=== PATIENT | male | born 1955 | race Two or more races ===

== ENCOUNTER 2025-04-10 13:30 | Outpatient (RCR) | payer MEDICARE, SELFPAY ==
--- NOTE | 2025-04-04 13:34 | PTNOTE_ITS ---
PT OP Initial Eval Patient Information Outpatient Physical Therapy Treatment Date: 04/04/25 Visit Reasons: Neck pain Medical Diagnosis: Neck Pain Treatment Dx #1: Neck Pain Treatment Dx #2: C/S Mobility Deficits Start of Care: 04/04/25 Date of Onset: 20 years ago Smoking Status Smoking Status: Never smoker Initial Assessment Subjective: Pt is a 69 y/o male reports of chronic neck pain (03/21) since 20 years ago. Pt denies of pain or numbness down the arms. Pt also confirmed that he has been diagnosed with scoliosis and rheumatoid arthritis. Pt has limitation with turning his head, perform chores, self care, lifting, and performing recreational activities. Objective: C/S AROM Flexion: 5 deg Extension: 9 deg Left Sidebendin deg Right Sidebendin deg Left Rotation: 15 deg Right Rotation: 18 deg BUE AROM: all motions are WFL BUE MMTs: grossly 4-/5 Scapula MMTs: grossly 3+/5 Posture Analysis: forward head posture, rounded shoulders, t/s kyphosis Palpation: TTP and increase upper trape and levator tone; hypomobile C2-C7 facets bilaterally Assessment: Pt demonstrate neck pain with c/s mobility deficits leading to difficulty with ADLs. Pt will benefit from physical therapy to increase ROM, flexibility, and work on overall mobility. Short Term and Correction Goals 1) Increase c/s AROM WFL in 6 wks to be able to perform chores 2) Increase BUE MMTs to 4/5 in 6 wks to be able to perform recreational activities 3) Decrease neck pain in 6 wks to be able to perform self care activities with less limitation 4) Improve posture in 6 wks to be able to sit and stand longer with less pain 5) Indep with HEP Treatment Plan 1) Manual Therapy 2) Therapeutic Activities 3) Therapeutic Exercises 4) Modalities (ice, heat) Frequency and Duration: 2 x wk for 6 wks Certification Dates: 04/04/25 to 07/05/25 Procedure Charges OP PT Eval Mod Complex 30 minutes: Yes
--- NOTE | 2025-04-10 14:26 | PT.ODAYNRPT ---
PT Outpatient Daily Note OP Daily Note Outpatient Physical Therapy Treatment Date: 04/10/25 Visit Reasons: Neck pain Subjective: Pt's neck feels okay. Pt still has stiffness and difficulty with turning head Objective: Please see flow chart for list of ther ex performed Assessment: minimal changes with c/s AROM post stretching. Frequent cues to correct pec major stretch to decrease right upper trape recruitment while stretching. Plan: Continue with PT Length of Time (minutes) of Treatment: 30 Minutes Procedure Charges Therapeutic Exercise 30 minutes: Yes
== END 2025-04-11 23:59 | disposition home or self-care (01) ==
LOC: CPTX 13:30
PROVIDERS: PCP Physician Assistant; Referring Provider Physician Assistant; Visit Provider Physician Assistant
DX: M54.2 Cervicalgia (principal); G89.29 Other chronic pain; M41.9 Scoliosis, unspecified; M06.9 Rheumatoid arthritis, unspecified
CPT/HCPCS: 97110; 97162

== ENCOUNTER 2025-05-09 13:30 | Outpatient (RCR) | payer MEDICARE, SELFPAY ==
--- NOTE | 2025-04-12 13:46 | PT.ODAYNRPT ---
PT Outpatient Daily Note OP Daily Note Outpatient Physical Therapy Treatment Date: 04/12/25 Visit Reasons: neck pain Subjective: Pt's neck feels better after last session. Pt does not have any concerns. Objective: Please see flow chart for list of ther ex performed Assessment: less guarded today with neck stretches. Pt continues to exhibit tightness in upper trape/levator scapulae L>R during stretches Plan: Continue with PT Length of Time (minutes) of Treatment: 30 Minutes Procedure Charges Therapeutic Exercise 30 minutes: Yes
--- NOTE | 2025-04-15 13:41 | PT.ODAYNRPT ---
PT Outpatient Daily Note OP Daily Note Outpatient Physical Therapy Treatment Date: 04/15/25 Visit Reasons: neck pain Subjective: Pt reports neck is doing ok, no new concerns. Objective: Please see flow sheet for ther ex list. Assessment: Pt demonstrates good tolerance with added rows exercise. Plan: Continue with pOC. Length of Time (minutes) of Treatment: 30 Minutes CORE RESCUER Service Modifier Method I: Divide the number of min of care provided by the CORE RESCUER/KYLIE by the total min of care provided then multiply by 100. If greater than 11 percent modifier is required. Method II: Divide the total time of care provided to patient by 10 (round to the nearest whole number) and add 1 min. to set the minimum time requirement. If treatment total was 60 min., then 10% of 6 min PT CQ modifier applied: CQ Modifier applied Procedure Charges Therapeutic Exercise 30 minutes: Yes
--- NOTE | 2025-05-06 14:08 | PTNOTE_ITS ---
PT Outpatient Daily Note OP Daily Note Outpatient Physical Therapy Treatment Date: 05/06/25 Visit Reasons: neck pain Subjective: [place] that is why he has not been to therapy. Objective: Please see flow sheet for ther ex list. Assessment: Pt c/s AROM limited, pt instructed on cervical retraction but requires verbal cu es and demonstration to avoid c/s flexion. Plan: Continue with pOC. Length of Time (minutes) of Treatment: 30 Minutes ENGLISH DRAWER Service Modifier Method I: Divide the number of min of care provided by the ENGLISH DRAWER/KYLIE by the total min of care provided then multiply by 100. If greater than 11 percent modifier is required. Method II: Divide the total time of care provided to patient by 10 (round to the nearest whole number) and add 1 min. to set the minimum time requirement. If treatment total was 60 min., then 10% of 6 min PT CQ modifier applied: CQ Modifier applied Procedure Charges Therapeutic Exercise 30 minutes: Yes
--- NOTE | 2025-05-09 15:05 | PT.ODAYNRPT ---
PT Outpatient Daily Note OP Daily Note Outpatient Physical Therapy Treatment Date: 05/09/25 Visit Reasons: neck pain Subjective: No progress or changes to report at this time. Objective: Please see flow sheet for ther ex list. Assessment: Thoracic extension exercise completed with c/s extension, verbal cues and demonstration to attempt to maintain c/s in neutral pt complied. Plan: Continue with POC. Length of Time (minutes) of Treatment: 30 Minutes Procedure Charges Therapeutic Exercise 30 minutes: Yes
== END 2025-05-12 23:59 | disposition home or self-care (01) ==
LOC: CPTX 13:30
PROVIDERS: PCP Physician Assistant; Referring Provider Physician Assistant; Visit Provider Physician Assistant
DX: M54.2 Cervicalgia (principal); M41.9 Scoliosis, unspecified; M06.9 Rheumatoid arthritis, unspecified
CPT/HCPCS: 97110

== ENCOUNTER 2025-06-06 13:30 | Outpatient (RCR) | payer MEDICARE, SELFPAY ==
--- NOTE | 2025-05-23 14:39 | PTNOTE_ITS ---
PT Outpatient Daily Note OP Daily Note Outpatient Physical Therapy Treatment Date: 05/23/25 Visit Reasons: neck pain Subjective: Pt notices neck is moving a little better when it comes to rotating head but is aware that in his case he will not recover full ROM. Objective: Please see flow sheet for ther ex list. Assessment: Focus on improving static and dynamic posture, ROM of c/s slowly progressing. Plan: Continue with pOC. Length of Time (minutes) of Treatment: 30 Minutes COMMUNITY DEVELOPMENT MANAGER Service Modifier Method I: Divide the number of min of care provided by the COMMUNITY DEVELOPMENT MANAGER/PACKAGE CRIMPER by the total min of care provided then multiply by 100. If greater than 11 percent modifier is required. Method II: Divide the total time of care provided to patient by 10 (round to the nearest whole number) and add 1 min. to set the minimum time requirement. If treatment total was 60 min., then 10% of 6 min PT CQ modifier applied: CQ Modifier applied Procedure Charges Therapeutic Exercise 30 minutes: Yes
--- NOTE | 2025-05-29 15:19 | PTNOTE_ITS ---
PT Outpatient Daily Note OP Daily Note Outpatient Physical Therapy Treatment Date: 05/29/25 Visit Reasons: neck pain Subjective: Pt reports noticing some progress with neck symptoms. Objective: Please see flow sheet for ther ex list. Assessment: Pt continues to demonstrate forward stooped posture and increase thoracic kyphotic posture but reports progress with symptoms. Plan: Continue with poC. Length of Time (minutes) of Treatment: 30 Minutes CERTIFIED ORTHOTIC FITTER Service Modifier Method I: Divide the number of min of care provided by the CERTIFIED ORTHOTIC FITTER/SUPERVISOR RUBBER COVERING by the total min of care provided then multiply by 100. If greater than 11 percent modifier is required. Method II: Divide the total time of care provided to patient by 10 (round to the nearest whole number) and add 1 min. to set the minimum time requirement. If treatment total was 60 min., then 10% of 6 min PT CQ modifier applied: CQ Modifier applied Procedure Charges Therapeutic Exercise 30 minutes: Yes
--- NOTE | 2025-06-04 14:04 | PTNOTE_ITS ---
PT Outpatient Daily Note OP Daily Note Outpatient Physical Therapy Treatment Date: 06/04/25 Visit Reasons: neck pain Subjective: Pt's neck pain is doing okay. Pt reports of more left shoulder pain after he washed his car ~ 30 mins. Pt used a pain patch on the shoulder and pain seems to be better. Pt has a follow up appt with provider in [place]. Objective: Please see flow chart for list of ther ex performed Assessment: post heat helped with neck and left shoulder pain. Pt demonstrate improve upper cervical mobility demonstrating more mobility with chin tuck exercise Plan: Continue with PT Length of Time (minutes) of Treatment: 30 Minutes Procedure Charges Therapeutic Exercise 30 minutes: Yes
--- NOTE | 2025-06-06 13:40 | PTNOTE_ITS ---
PT Outpatient Daily Note OP Daily Note Outpatient Physical Therapy Treatment Date: 06/06/25 Visit Reasons: neck pain Subjective: Pt c/o stiffness and minimal nek pain today. Objective: Please see flow sheet for ther ex list. Assessment: Pt demonstrates upper trap recruitment posture, instructed on relaxation exercises for upper trap region. Plan: Continue with poC. Length of Time (minutes) of Treatment: 30 Minutes DIRECTOR PROJECT MANAGEMENT Service Modifier Method I: Divide the number of min of care provided by the DIRECTOR PROJECT MANAGEMENT/CERTIFIED ORTHOTIST by the total min of care provided then multiply by 100. If greater than 11 percent modifier is required. Method II: Divide the total time of care provided to patient by 10 (round to the nearest whole number) and add 1 min. to set the minimum time requirement. If treatment total was 60 min., then 10% of 6 min PT CQ modifier applied: CQ Modifier applied Procedure Charges Therapeutic Exercise 30 minutes: Yes
== END 2025-06-11 23:59 | disposition home or self-care (01) ==
LOC: CPTX 13:30
PROVIDERS: PCP Physician Assistant; Referring Provider Physician Assistant; Visit Provider Physician Assistant
DX: M54.2 Cervicalgia (principal); M41.9 Scoliosis, unspecified; M06.9 Rheumatoid arthritis, unspecified
CPT/HCPCS: 97110

== ENCOUNTER 2025-06-19 13:00 | Outpatient (RCR) | payer MEDICARE, SELFPAY ==
--- NOTE | 2025-06-14 14:10 | PTNOTE_ITS ---
PT Outpatient Daily Note OP Daily Note Outpatient Physical Therapy Treatment Date: 06/14/25 Visit Reasons: Neck pain Subjective: Pt reports his neck is doing somewhat better, notices some improvement with flexibility. Objective: Please see flow sheet for ther ex list. Assessment: Pt demonstrates improved tolerance with thoracic extension exercise indicated by no complaint of pain with ROm into extension. Plan: Continue with pOC. Length of Time (minutes) of Treatment: 30 Minutes FARM SERVICE ADVISER Service Modifier Method I: Divide the number of min of care provided by the FARM SERVICE ADVISER/KYLIE by the total min of care provided then multiply by 100. If greater than 11 percent modifier is required. Method II: Divide the total time of care provided to patient by 10 (round to the nearest whole number) and add 1 min. to set the minimum time requirement. If treatment total was 60 min., then 10% of 6 min PT CQ modifier applied: CQ Modifier applied Procedure Charges Therapeutic Exercise 30 minutes: Yes
--- NOTE | 2025-06-17 16:21 | PT.ODAYNRPT ---
PT Outpatient Daily Note OP Daily Note Outpatient Physical Therapy Treatment Date: 06/17/25 Visit Reasons: Neck pain Subjective: Pt reports slow progress with neck but feels ROm has improved. Objective: Please see flow sheet for ther ex list. Assessment: Verbal cues to perform cervical rotation exercise avoiding protrusion, pt complied. Plan: Continue with POC. Length of Time (minutes) of Treatment: 30 Minutes DIRECTOR OF GLOBAL MARKETING Service Modifier Method I: Divide the number of min of care provided by the DIRECTOR OF GLOBAL MARKETING/SENIOR SOFTWARE DEVELOPER by the total min of care provided then multiply by 100. If greater than 11 percent modifier is required. Method II: Divide the total time of care provided to patient by 10 (round to the nearest whole number) and add 1 min. to set the minimum time requirement. If treatment total was 60 min., then 10% of 6 min PT CQ modifier applied: CQ Modifier applied Procedure Charges Therapeutic Exercise 30 minutes: Yes
--- NOTE | 2025-06-19 14:27 | PT.ODS1RPT ---
PT OP Progress/Discharge Note Date of Service: 06/19/25 Progress Note/DC Note Progress Note/Discharge Note: DC Note Patient Information Visit Reasons: Neck pain Medical Diagnosis: Neck Pain Treatment Dx #1: Neck Pain Service Continue Service or Discharge: Discharge Discharge Date: 06/19/25 Status Subjective: Pt's neck pain is a little better. Pt has been able to turn head, perform chores, self care, and lift arms with less limitation. At this time Pt feels comfortable being release from PT with exercises to continue. Objective: C/S AROM: all motions are WFL where ROM is available BUE AROM: all motions are WNL BUE MMTs: grossly 4/5 Scapula MMTs: grossly 3+/5 Palpation: decrease upper trape and levator scapulae tone Assessment: Pt demonstrate improve with c/s mobility and overall BUE strength allowing him to perform ADLs with less limitation. Pt will no longer benefit from physical therapy due to plateau towards goals. Pt was instructed on HEP last session and educated to continue exercises to maintain overall mobility. Pt performed all exercises safely, thank you for your referrals. Plan: D/C home with HEP and follow up with MD [facility]OTTER Procedure Charges Therapeutic Exercise 30 minutes: Yes
== END 2025-07-12 23:59 | disposition home or self-care (01) ==
LOC: CPTX 13:00
PROVIDERS: PCP Physician Assistant; Referring Provider Physician Assistant; Visit Provider Physician Assistant
DX: M54.2 Cervicalgia (principal); G89.29 Other chronic pain; M41.9 Scoliosis, unspecified; M06.9 Rheumatoid arthritis, unspecified
CPT/HCPCS: 97110

== ENCOUNTER → 2025-07-12 | Outpatient (CLI) | payer MEDICARE, MEDICAID, SELFPAY ==
--- NOTE | 2025-07-12 | XR_ITS ---
EXAMINATION: Cervical spine, 5 views Technique: Cervical spine AP, AP odontoid, lateral, bilateral obliques, 5 views Exam date and time: July 12, 2025, 1126 hours INDICATIONS: Neck pain 5 days FINDINGS: Straightening normal cervical lordosis Very prominent osteophytes anterior margin C3-C4, measuring up to 24 mm indenting the oropharyngeal and subglottic airway Severe osteopenia No acute fracture Intact odontoid Diffuse moderate to advanced bilateral neural foraminal stenosis IMPRESSION: Prominent cervical spondylosis which is indenting the oropharyngeal and subglottic airway
== END | disposition home or self-care (01) ==
PROVIDERS: PCP Family Medicine; Referring Provider Physician Assistant; Visit Provider Physician Assistant
DX: M47.812 Spondylosis without myelopathy or radiculopathy, cervical region (principal)
CPT/HCPCS: 72050